=== PATIENT | male | born 1965 ===

== ENCOUNTER 2018-10-04 06:54 | Day surgery (SDC) | payer OTHER ==
[2018-10-04] MEDS ORDERED: PERCOCET 5-3251 EACH PO (09:06)
[2018-10-04] MEDS ORDERED: RECTICARE30 GM TOP (09:06)
== END 2018-10-04 13:10 | disposition home or self-care (01) ==
LOC: CIR.AMB 06:54
DX: K60.1 Chronic anal fissure (principal)